=== PATIENT | male | born 1940 | race Caucasian/White ===

== ENCOUNTER → 2016-12-03 | Day surgery (SDC) | payer MEDICARE ==
[~2016-12-03] MED LIST: BUPIVACAINE/EPINEPHRINE 0.25% 50 ML VIAL ONE; BUPIVACAINE/EPINEPHRINE 0.5% 50 ML VIAL ONE; CALTTAB5 PO; COUM5TAB PO; ISOSULFAN BLUE 50 MG/5 ML VIAL SQ ONE; KETOROLAC TROMETHAMINE 30 MG/ML (IVP) VIAL IV PUSH ONE; LACTATED RINGER'S 1000 ML INJ 1,000 ML ONE; LEVO500T3 PO; LORT5TAB PO; MIDAZOLAM HCL 2 MG/2 ML VIAL ONE; OMEP20TA PO; ONDANSETRON HCL 4 MG/2 ML VIAL IV PUSH ONE; PROPOFOL 200 MG/20 ML AMP IV ONE; PROS5TAB2 PO; ceFAZolin 2 GM PREMIX 50 ML ONE
--- NOTE | 2016-12-03 14:32 | TN ---
cc: ZOYA COOMBS M.D. DATE OF SURGERY 12/03/2016 PREOPERATIVE DIAGNOSIS Malignant melanoma right upper extremity. POSTOPERATIVE DIAGNOSIS Malignant melanoma right upper extremity. PROCEDURE PERFORMED 1. Wide local excision malignant melanoma right upper extremity 3 x 6 cm. 2. Injection and excision right axillary sentinel node. SURGEON Zoya Coombs MD ANESTHESIA General LMA. COMPLICATIONS None. INDICATIONS FOR PROCEDURE Mr. Aguirre is a very pleasant 76-year-old male who was noted to have a pigmented lesion on his right mid-arm. He underwent biopsy. This was found to be a 1.7-mm invasive melanoma. He was referred for definitive wide local excision and sentinel node excision. The risks and benefits of the procedure were discussed with him and he was agreeable. INTRAOPERATIVE FINDINGS [place] node was located and found to have a 10-second count of 5785. There was noted be some blue dye going toward this sentinel node. There are no palpable nodes in the right axilla and no obvious blue nodes. DETAILS The patient was identified, brought to the operating room, placed supine on the operating table. After adequate general anesthesia was achieved via LMA, 5 cc of isosulfan blue was injected into the melanoma biopsy site in the right lateral mid-upper arm. This was massaged into the skin. The right upper arm and axilla was then prepped and draped in standard surgical fashion. Approximate location of the sentinel node had been marked by Radiology. Using the probe, we confirmed the location. 0.25% Marcaine was injected. A transverse incision was made directly overlying the node. Using combination of blunt and electrocautery dissection, the axilla proper was entered. An enlarged node was immediately identified. There was some blue channels going toward it. It was grasped with an Allis clamp and dissected from surrounding tissue using a combination of blunt and electrocautery dissection. The node was excised in toto. It was checked and found have a 10-second count of 5785. This was labeled sentinel node #1. Once this node was removed, the probe was used to check the axilla. There was no significant activity noted within the axilla. By direct palpation there were no palpable nodes within the axilla. By direct visualization I could not see any blue nodes or dye within the axilla. At this point I felt confident we had the sentinel node. 0.25% Marcaine was injected into the field after irrigating it out with about 100 cc of normal saline. The wound was then closed in two layers using 3-0 and 4-0 Vicryl. Attention was now directed to the right mid-arm where the melanoma biopsy site was localized. This was then marked by myself and the patient in the preoperative holding area. Using 1 cm margins in the medial and lateral position, a 3 x 6 cm ellipse was drawn out. 0.25% Marcaine was injected completely around the ellipse. The skin was then excised in the ellipse using a 3 x6 elliptical incision. Electrocautery Bovie was used to excise the underlying fat down to the level of the muscular fascia. The lesion was excised in toto and a short stitch was placed superior at 12 o'clock, a long stitch was placed lateral at 9 o'clock. It was sent to pathology for analysis. The wound was then irrigated with normal saline solution. Skin flaps were then raised medially and laterally in order to achieve primary closure. Primary closure was accomplished using a 3-0 Vicryl for the deep tissue and a 4-0 Vicryl for the skin. Sterile dressings were applied and the patient was awakened and brought to Recovery in stable condition. MD ROGER Mcmillan/KHUSHBOO /2:03 PM /2:24 PM
== END | disposition home or self-care (01) ==
LOC: ESDC 08:15
PROVIDERS: ATTEND Surgery Trauma Surgery
DX: C43.61 Malignant melanoma of right upper limb, including shoulder (principal)
CPT/HCPCS: 00400; 01610; 11606; 38525; 38792; 88305; 88307; J0690; J1885; J2250; J2405; J3010; J7120; Q9968; 88341; 88342

== ENCOUNTER → 2016-12-23 | Day surgery (SDC) | payer MEDICARE ==
[~2016-12-23] MED LIST changes: -BUPIVACAINE/EPINEPHRINE 0.25% 50 ML VIAL ONE; +BUPIVACAINE/EPINEPHRINE 0.25% PF 30 ML VIAL ONE; -BUPIVACAINE/EPINEPHRINE 0.5% 50 ML VIAL ONE; -KETOROLAC TROMETHAMINE 30 MG/ML (IVP) VIAL IV PUSH ONE; +LIDOCAINE 1%/EPINEPHrine 1:100,000 SOLN 30 ML VIAL ONE; -ONDANSETRON HCL 4 MG/2 ML VIAL IV PUSH ONE; +PROPOFOL 100 MG/10 ML INJ IV ONE; -PROPOFOL 200 MG/20 ML AMP IV ONE
--- NOTE | 2016-12-23 15:58 | TN ---
cc: ZOYA COOMBS M.D. DATE OF SURGERY 12/23/2016 PREOPERATIVE DIAGNOSES 1. Malignant melanoma left chest. 2. Basal cell carcinoma left lower extremity. 3. Concerning pigmented lesion left inferior chest. POSTOPERATIVE DIAGNOSES 1. Malignant melanoma left chest. 2. Basal cell carcinoma left lower extremity. 3. Concerning pigmented lesion left inferior chest. PROCEDURE 1. Wide local excision basal cell carcinoma left lower extremity. 2. Excision pigmented lesion left inferior chest. 3. Wide local excision invasive melanoma left superior chest. 4. [place] node excision x2 left axilla. SURGEON Zoya Coombs MD ROAD [employer] Val[place] ANESTHESIA General. COMPLICATIONS None. INDICATIONS FOR PROCEDURE Mr. Aguirre is very pleasant 76-year-old gentleman who was noted have a concerning pigmented lesion of his left anterior chest. This was biopsied and found to be invasive melanoma with positive margins. He also had biopsy of a lesion on his left lower leg which was found be a basal cell carcinoma with positive margins. The patient also demonstrated a concerning pigmented lesion on his left inferior chest that he wished excised due to his history. He was seen and evaluated in the office. He was offered wide local excision of the melanoma with 2 cm margins as well as wide excision of the basal cell carcinomas on his left leg and he also requested we excise the pigmented lesion on his left inferior chest at the same time. We also discussed sentinel lymph node excision. He was agreeable. DETAILS OF PROCEDURE The patient was identified, brought to the operating room and placed supine on the operating table. After adequate general anesthesia was achieved with LMA the anterior chest and left lower leg were prepped and draped in standard surgical fashion. Attention was first directed to the left axilla. Prior to prepping and draping we had injected approximately 5 mL of isosulfan blue into the residual malignant melanoma on the left superior chest. This was then massaged into the skin and several minutes were allowed to pass. The left axilla was injected with 0.25% Marcaine. Using the probe we identified the approximate location of the sentinel node. A transverse incision was made. Dissection was carried into the axilla proper where we immediately identified a blue node. This was grasped with Allis clamp and dissected from surrounding tissues using electrocautery Bovie. This was removed and checked ex vivo with a 10-second count of 1224. This was labeled sentinel node number one, blue count 1224 and sent to pathology. Then using the probe there was a node just inferior to this first node. It did not have any blue dye in it. It was grasped with Allis clamp and dissected from surrounding tissues using electrocautery Bovie. It was found to have found to have a 10-second ex vivo count of 641, did not have any blue dye. It was labeled sentinel node number two, not blue, count 641. After these two nodes were removed there was no other activity noted within the axilla with the probe. By direct visualization I could not appreciate any blue dye or blue channels. By direct palpation I could not palpate any concerning nodes. At this point we felt comfortable with the sentinel node procedure. Wound was irrigated normal saline solution. Wound was then injected with additional local anesthetic and closed in two layers using 3-0 and 4-0 Vicryl. Now attention was directed to the lesion on the left anterior chest. The pigmented lesion on the left anterior chest was injected local anesthetic. It was excised with 2 x 4 cm elliptical incision. It was sent to pathology with a short stitch superior, long stitch lateral. It was then closed in two layers using 3-0 and 4-0 Vicryl. Sterile dressings were applied. Attention was now directed to the left lower leg. On the left lower leg the basal cell carcinoma was identified. 0.25% Marcaine was injected around it. A generous elliptical incision was used to gross negative margins. It was excised at about a 3 x 6 cm with elliptical incision used to excise it. It was labeled a short stitch superior, long stitch lateral. It was sent to pathology for analysis. Wound was then closed in two layers using a 3-0 Vicryl for the subcutaneous tissue and a 4-0 nylon for the skin. Sterile dressings were applied. Finally attention was directed to the lesion on the left anterior chest. Using a 4 x 8 cm elliptical incision the lesion was excised using sharp dissection. 0.25% Marcaine was injected along the proposed incision site prior to excision. Subcutaneous tissues dissect with electrocautery Bovie. A short stitch was placed superior, long stitch placed lateral in order to orient the specimen. It was sent to pathology for analysis. The wound was then closed in two layers using a 3-0 and 4-0 Vicryl. Sterile dressings were applied. The patient was awakened, brought to recovery in stable condition. Please note the [employer] first officer was medically necessary due to her specialized surgical skills and knowledge of my surgical technique. Zoya MD ROGER Coombs/REGINA /2:02 PM /3:34 PM ROBBY
== END | disposition home or self-care (01) ==
LOC: ESDC 07:50
PROVIDERS: ATTEND Surgery Trauma Surgery
DX: C43.59 Malignant melanoma of other part of trunk (principal); C44.719 Basal cell carcinoma of skin of left lower limb, including hip; L82.1 Other seborrheic keratosis
CPT/HCPCS: 00400; 01610; 11402; 11603; 11606; 38525; 38792; 88305; 88307; 88341; 88342; J0690; J2250; J3010; J7120; Q9968